=== PATIENT | male | born 1950 | race Caucasian/White ===

== ENCOUNTER → 2016-07-03 | Outpatient (CLI) | payer BC ==
[~2016-07-03] MED LIST: IOPAMIDOL (ISOVUE 370) 100 ML BTL IV ONE
== END ==
LOC: FIMAGING 17:05
PROVIDERS: ATTEND Internal Medicine
DX: R00.0 Tachycardia, unspecified (principal); R09.02 Hypoxemia; R94.31 Abnormal electrocardiogram [ECG] [EKG]; I70.0 Atherosclerosis of aorta; I25.10 Atherosclerotic heart disease of native coronary artery without angina pectoris
CPT/HCPCS: Q9967

== ENCOUNTER → 2016-07-03 | Outpatient (CLI) | payer BC ==
[~2016-07-03] MED LIST changes: +BACITRACIN 50,000 UNITS/10 ML SYR IRR ONE; +BUPIVACAINE 0.5% 30 ML SDV ONE; -IOPAMIDOL (ISOVUE 370) 100 ML BTL IV ONE; +POLYMYXIN B SULFATE 500,000 UNIT/10 ML SYR IRR ONE
== END ==
LOC: FIMAGING 10:57
PROVIDERS: ATTEND Internal Medicine
DX: Z01.818 Encounter for other preprocedural examination (principal)

== ENCOUNTER 2016-07-05 06:27 | Day surgery (SDC) | payer BC ==
[2016-07-05] MEDS ORDERED: LIDOCAINE 1% 5 ML SDV ONE (07:01)
[2016-07-05] MEDS ORDERED: PROPOFOL 200 MG/20 ML VIAL ONE ×2 (07:44→07:45)
[2016-07-05] MEDS ORDERED: fentaNYL 100 MCG/2 ML INJ ONE ×3 (07:44→10:53)
[2016-07-05] MEDS ORDERED: LIDOCAINE 2% 100 MG/5 ML SYR ONE (07:47)
[2016-07-05] MEDS ORDERED: MIDAZOLAM 2 MG/2 ML VIAL ONE (07:52)
[2016-07-05] MEDS ORDERED: CEFAZOLIN 1 GM/DEXTROSE/50 ML BAG IV ONE (07:56)
[2016-07-05] MEDS ORDERED: ONDANSETRON 4 MG/2 ML VIAL ONE (08:45)
[2016-07-05] MEDS ORDERED: DEXAMETHASONE 4 MG/ML VIAL ONE (08:45)
[2016-07-05] MEDS ORDERED: SUGAMMADEX SODIUM 200 MG/2 ML VIAL IVP ONE (09:28)
[2016-07-05] MEDS ORDERED: POLYMYXIN B SULFATE 500,000 UNIT/10 ML SYR IRR ONE (09:29)
[2016-07-05] MEDS ORDERED: BACITRACIN 50,000 UNITS/10 ML SYR IRR ONE (09:29)
[2016-07-05] MEDS ORDERED: HYDROmorphONE/DILAUDID 2 MG/ML INJ ONE (10:53)
[2016-07-05] MEDS ORDERED: KETOROLAC 15 MG/1 ML SDV ONE (11:03)
[2016-07-05] MEDS ORDERED: OXYCODONE/APAP 5/325 TAB ONE ×2 (11:15→11:35)
--- NOTE | 2016-07-05 11:24 | GOP ---
[f rep st] OPERATIVE REPORT DATE OF OPERATION: 07/05/2016 SURGEON: Lon Martin MD WAREHOUSE HANDLER: Britney Hudson. Use of a surgical product sales consultant was required for retraction and during surgical exposure. ANESTHESIA: General. PREOPERATIVE DIAGNOSIS: Significantly displaced left lateral malleolus fracture. POSTOPERATIVE DIAGNOSIS: Significantly displaced left lateral malleolus fracture. PROCEDURE PERFORMED: Open reduction, internal fixation displaced left lateral malleolus fracture. FINDINGS: INDICATIONS: This is a 65-year-old male who suffered the above injury approximately 2-1/2 weeks ago . He did not seek medical attention immediately, but x-rays do show significant displacement of the fracture and the mortise with tailor displacement. He is now being admitted for surgical care. We have gone over risks, benefits and limitations of the procedure as well as expected postoperative r ecovery period preoperatively with the patient. DESCRIPTION OF PROCEDURE: After an adequate general anesthetic was obtained and IV antibiotics were administered to the patient's left lower extremity, he was prepped and draped in the usual sterile fashion. The limb was exsanguinated with the Esmarch and tourniquet elevated to [address] through the procedure we increased the pressure to 325 mmHg. A lateral incision was placed over the left ankle distally. Dissection was carried down through the subcutaneous tissues. Hemostasis was obtained using electrocautery. There was significant amount of edema. The fracture site was identified. This was more comminuted than the x-rays indicated wit h 2 posterior butterfly fragments. Interposed clot and hematoma as well as fibrous tissue was metic ulously curetted free and the fracture site irrigated. The posterior comminution precluded an anter ior to posterior lag screw. The 2 butterfly fragments posteriorly were too comminuted and small in size to allow independent int ernal fixation. An anatomic reduction of the major proximal and distal fragments could now be achieved and held in p lace with a bone reduction clamp. A Synthes one-third tubular plate was contoured to fit the distal fibula. This was now fixed rigidl y using a combination of cortical and cancellous screws obtaining excellent and rigid fixation. Int raoperative C-arm fluoroscopy was utilized in the AP, lateral and mortise planes which confirmed an anatomic reduction of the mortise with excellent reduction of the fracture and good positioning of t he hardware. The wound was copiously irrigated. The deep layer was closed using interrupted 0 Vicryl suture. Teixeira bcutaneous closure performed using interrupted 3-0 Vicryl suture. Skin closure performed using inte rrupted 3-0 nylon suture. Then 30 mL of 0.5% Marcaine plain was injected for postoperative analgesia. Sterile dressing was applied followed by a posterior stirrup type splint in neutral position. Tourn iquet was deflated after 108 minutes tourniquet time. There were no complications. Patient tolerated the procedure well and returned to the recovery room in stable condition. /[id number]/MODL
--- NOTE | 2016-07-05 16:39 | GCON ---
[f rep st] CONSULTATION DATE OF CONSULTATION: 07/05/2016 REFERRING PHYSICIAN: Lon Martin MD REASON FOR CONSULTATION: Postoperative hypoxemia. HISTORY OF PRESENT ILLNESS: This is a 65-year-old male with history of hypertension who underwent O RIF of a displaced left lateral malleolus fracture today. I have been asked to see due to hypoxemia . In the PACU, the patient was noted to have desaturations in the mid 70s while asleep. During the time of my exam, the patient denies any chest pain. He denies any shortness of breath. He denies any cough. He denies any chest pain. I did review his progress notes from his [facility] visit done yesterday July 04, 2016. During hi s office visit, he was found to be hypoxemic which was thought to possibly be due to obesity, hypove ntilation syndrome in combination with untreated sleep apnea. He did have a CT angio of the chest o n 07/03/2016 which I reviewed and showed no pulmonary emboli, pneumonia, pleural effusions or pneumo thorax. During the time of my exam, the patient is recovering comfortably from his surgery. His pain is con trolled. His oxygen saturations are in the mid 90s on room air. PAST MEDICAL HISTORY: Hypertension. PAST SURGICAL HISTORY: Left ankle ORIF done today. HOME MEDICATIONS: Reviewed. ALLERGIES: No known drug allergies. SOCIAL HISTORY: The patient spends half of his time in [place] and the other half in [place]. H e does endorse drinking alcohol. He denies any tobacco or illicit drug use. FAMILY HISTORY: Reviewed and noncontributory. REVIEW OF SYSTEMS: Comprehensive 10-point review of systems was done and is negative except for as mentioned in HPI and below. He does report some daytime somnolence but denies any snoring or paroxy smal nocturnal dyspnea. PHYSICAL EXAM: VITAL SIGNS: O2 saturation 93% on room air, blood pressure 150/90, heart rate 88, r espiratory rate 12. GENERAL: No acute distress. HEAD: Normocephalic, atraumatic. EYES: PERRLA. Sclerae anicteric. MOUTH: Moist mucous membranes. NECK: Supple. No lymphadenopathy. CARDIOVA SCULAR: S1, S2. No murmurs, rubs, clicks, gallops, or JVD. No lower extremity edema. PULMONARY: Lungs are clear. No wheezes, rales, or rhonchi. Slightly diminished in bilateral bases. ABDOMEN: Soft, nontender, nondistended. No guarding or rebound tenderness. Normoactive bowel sounds. EXT REMITIES: No clubbing or cyanosis. Left ankles in a posterior-like splints. DIAGNOSTICS: Preop labs on 07/03/2016 were reviewed. WBC 7.4, hemoglobin 13.9, hematocrit 42.1, pl atelets 250, D-dimer was elevated at 2.37. Sodium 140, potassium 4.2, chloride 105, CO2 23, BUN 18, creatinine 1.4, glucose 94, LFTs unremarkable. CT angio of the chest on 07/03/2016 was reviewed an d was negative for PE, pneumonia but did show some coronary artery plaques. Chest x-ray, which I vi sualized and personally interpreted shows normal heart size. No infiltrates. No pneumonia. ASSESSMENT AND PLAN: This is a 65-year-old male, postoperative day 0, left lateral malleolus ORIF b y Dr. Martin whom I have been asked to see due to resolved postoperative hypoxemia but with likely u nderlying obstructive sleep apnea and possible obesity hypoventilation syndrome. PLAN: 1. Currently, the patient appears to be oxygenating well. Will attempt to set up home oxygen. The patient already has been scheduled for outpatient sleep study. 2. Hypertension. moderately controlled. 3. Continue losartan/hydrochlorothiazide as well as carvedilol 6.25 mg twice daily as recommended b y Cardiology. 4. Coronary atherosclerosis seen on chest CT. 5. Once again, when he was seen by Cardiology yesterday, he was counseled to start aspirin as well as a statin after surgery. This should be addressed by his primary care provider. 6. Thank you for allowing me to participate in the care of this patient. Please call the hospitalist lis curtis with any further questions regarding his care. /[id number]/MODL
== END 2016-07-05 17:15 | disposition home or self-care (01) ==
LOC: FSGY 06:27 → F3N 13:43 → UNDOADMOB 13:43 → FSGY 17:15
PROVIDERS: ATTEND Orthopaedic Surgery Sports Medicine
PROC: 0QSK04Z Reposition Left Fibula with Internal Fixation Device, Open Approach (ICD-10-PCS; principal; 2016-07-05 08:00)
DX: S82.62XA Displaced fracture of lateral malleolus of left fibula, initial encounter for closed fracture (principal); I10 Essential (primary) hypertension; I25.10 Atherosclerotic heart disease of native coronary artery without angina pectoris; G47.33 Obstructive sleep apnea (adult) (pediatric); E66.9 Obesity, unspecified; R09.02 Hypoxemia; Y93.K1 Activity, walking an animal; W18.42XA Slipping, tripping and stumbling without falling due to stepping into hole or opening, initial encounter
CPT/HCPCS: C1713; J0690; J1100; J1170; J1885; J2001; J2250; J2405; J2704; J3010

== ENCOUNTER → 2017-10-03 | Outpatient (CLI) | payer BC | LOC: FCPNEURO 20:00 | PROVIDERS: ATTEND Internal Medicine Sleep Medicine | DX: G47.33 Obstructive sleep apnea (adult) (pediatric) (principal) ==